=== PATIENT | female | born 1935 | race Two or more races ===

== ENCOUNTER 2017-09-10 21:56 | Observation (INO) | payer MEDICARE ==
[2017-09-10] MEDS: SODIUM CHLORIDE 0.9% FLUSH 10 ML FLUSH IV FLUSH SCH (21:00)
[2017-09-10 21:20] VITALS: BP 148/67; PULSE 97; RESP 20; TEMP 97.1; O2SAT 95
[~2017-09-10 21:56] MED LIST: ACETAMINOPHEN 325 MG TAB PO PRN; ACETAMINOPHEN/HYDROcodone 325 MG/5 MG TAB PO PRN; AGGR20025 PO; ATOR20TA15 PO; BISACODYL 10 MG SUPP RECTAL PRN; DEXTROSE 50% IN WATER 50 ML VIAL(D50) IV PUSH PRN; GLIM4TAB PO; GLUCAGON 1 MG/ML VIAL OTHER PRN; LACTULOSE SYRUP 20 GM/30 ML CUP PO PRN; LOSA100T PO; MAGNESIUM HYDROXIDE SUSP 30 ML CUP PO PRN; METO1TAB42 PO; MORPHINE SULFATE 4 MG/ML INJ IV PUSH PRN; ONDANSETRON HCL 4 MG/2 ML VIAL IVP PRN; RESP: ALBUTEROL 2.5 MG/IPRATROPIUM 0.5 MG NEB (PRN) NEB; SENNOSIDES 8.6 MG TAB PO PRN; SITA1TAB2 PO; SODIUM CHLORIDE 0.9% FLUSH 10 ML FLUSH IV FLUSH PRN; VENTAER INH
[2017-09-10] MEDS: guaiFENesin E.R. 600 MG TAB PO SCH (22:25)
[2017-09-10] MEDS: ATORVASTATIN 20 MG TAB PO SCH (22:25)
[2017-09-10] MEDS: BUDESONIDE-FORMOTEROL 160/4.5 MCG INHALER INH SCH (22:25)
[2017-09-10] MEDS: INSULIN ASPART SUPPLEMENTAL SCALE SQ SCH (22:25)
[2017-09-10] MEDS: RESP: ALBUTEROL 2.5 MG/IPRATROPIUM 0.5 MG NEB (SCH) NEB (23:01)
[2017-09-11] VITALS (7 sets, daily range): BP systolic 146–172; BP diastolic 69–82; PULSE 78–104; RESP 12–18; TEMP 96.7–98.2; O2SAT 91–97
[2017-09-11] MEDS: methylPREDNISolone SOD SUCC 40 MG/1 ML VIAL IV PUSH SCH ×4 (00:06→18:22)
[2017-09-11] MEDS: RESP: ALBUTEROL 2.5 MG/IPRATROPIUM 0.5 MG NEB (SCH) NEB ×4 (07:41→20:13)
[2017-09-11] MEDS: INSULIN ASPART SUPPLEMENTAL SCALE SQ SCH ×4 (08:00→20:43)
[2017-09-11] MEDS ORDERED: DOCUSATE SODIUM 50 MG/SENNA 8.6 MG TAB PO SCH (09:00)
[2017-09-11 10:05] LABS: CHLORIDE 104 MEQ/L (98-107); POTASSIUM 4.5 MEQ/L (3.5-5.1); SODIUM (NA) 138 MEQ/L (136-145)
[2017-09-11 10:12] LABS: ANION GAP 10 MEQ/L (5-15); BICARBONATE 24.1 MEQ/L (21.0-32.0); BLOOD UREA NITROGEN 32 MG/DL (7-18)
[2017-09-11 10:15] LABS: AST (GOT) 20 U/L (15-37); GLOMERULAR FILTRATION RATE 53 ML/MIN (>89)
[2017-09-11 10:16] LABS: TOTAL BILIRUBIN ADULT 0.3 MG/DL (0.2-1.0)
[2017-09-11 10:17] LABS: ALT (GPT) 25 U/L (10-53)
[2017-09-11 10:18] LABS: ALKALINE PHOSPHATASE 83 U/L (45-117)
[2017-09-11 11:11] LABS: AUTOMATED NEUTROPHIL # 5.5 TH/MM3 (1.8-7.7); BASOPHIL % 0.2 % (0.0-2.0); HEMATOCRIT 44.8 % (35.0-46.0); LYMPHOCYTE # 0.7 TH/MM3 (1.0-4.8); MEAN CELL VOLUME 87.1 FL (80.0-100.0); MEAN CORPUSCULAR HEMOGLOBIN 27.7 PG (27.0-34.0); MEAN CORPUSCULAR HGB CONC 31.8 % (32.0-36.0); MONO % 5.4 % (0.0-8.0); NEUT % 83.4 % (16.0-70.0); PLATELET COUNT 159 TH/MM3 (150-450); RED BLOOD COUNT 5.15 MIL/MM3 (4.00-5.30); RED CELL DISTRIBUTION WIDTH 13.1 % (11.6-17.2); WHITE BLOOD COUNT 6.5 TH/MM3 (4.0-11.0)
[2017-09-11 11:13] LABS: HEMO FLAGS DIFF FINAL
[2017-09-11] MEDS: GLIMEPIRIDE 4 MG TAB PO SCH (11:30)
[2017-09-11] MEDS: BUDESONIDE-FORMOTEROL 160/4.5 MCG INHALER INH SCH ×2 (11:30→20:40)
[2017-09-11] MEDS: LOSARTAN 50 MG TAB PO SCH (11:30)
[2017-09-11] MEDS: METOPROLOL SUCCINATE 25 MG EXTENDED RELEASE TAB PO SCH (11:30)
[2017-09-11] MEDS: DIPYRIDAMOLE/ASPIRIN 200 MG/25 MG CAP PO SCH ×2 (11:30→20:39)
[2017-09-11] MEDS: guaiFENesin E.R. 600 MG TAB PO SCH ×2 (11:32→20:39)
[2017-09-11] MEDS: SODIUM CHLORIDE 0.9% FLUSH 10 ML FLUSH IV FLUSH SCH ×2 (11:33→20:36)
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
[2017-09-11] MEDS: HEPARIN SODIUM - SQ 10,000 UNITS/ML VIAL SQ SCH ×2 (15:58→20:39)
[2017-09-11] MEDS ORDERED: MORPHINE SULFATE 2 MG/ML INJ IV PUSH PRN (16:30)
[2017-09-11] MEDS: ATORVASTATIN 20 MG TAB PO SCH (20:39)
[2017-09-12] VITALS: BP 173/78; PULSE 96; RESP 18; TEMP 96.1; O2SAT 93
[2017-09-12] MEDS: methylPREDNISolone SOD SUCC 40 MG/1 ML VIAL IV PUSH SCH ×2 (00:21→06:00)
[2017-09-12] MEDS ORDERED: diphenhydrAMINE HCL 25 MG CAP PO ONE (00:45)
[2017-09-12] MEDS: HEPARIN SODIUM - SQ 10,000 UNITS/ML VIAL SQ SCH (06:00)
[2017-09-12] MEDS: RESP: ALBUTEROL 2.5 MG/IPRATROPIUM 0.5 MG NEB (SCH) NEB ×2 (07:34→11:22)
[2017-09-12 07:36] VITALS: O2SAT 93
[2017-09-12 08:00] VITALS: BP 190/84; PULSE 91; RESP 20; TEMP 97.4; O2SAT 92
[2017-09-12] MEDS: INSULIN ASPART SUPPLEMENTAL SCALE SQ SCH (08:00)
[2017-09-12] MEDS: LOSARTAN 50 MG TAB PO SCH (08:50)
[2017-09-12] MEDS: guaiFENesin E.R. 600 MG TAB PO SCH (08:50)
[2017-09-12] MEDS: METOPROLOL SUCCINATE 25 MG EXTENDED RELEASE TAB PO SCH (08:50)
[2017-09-12] MEDS: BUDESONIDE-FORMOTEROL 160/4.5 MCG INHALER INH SCH (08:50)
[2017-09-12] MEDS: SODIUM CHLORIDE 0.9% FLUSH 10 ML FLUSH IV FLUSH SCH (08:52)
[2017-09-12] MEDS: DIPYRIDAMOLE/ASPIRIN 200 MG/25 MG CAP PO SCH (08:52)
[2017-09-12] MEDS: GLIMEPIRIDE 4 MG TAB PO SCH (09:02)
[2017-09-12 09:50] VITALS: RESP 20
[2017-09-12] MEDS ORDERED: ALBU6.7H INH (10:04)
[2017-09-12] MEDS ORDERED: PRED10PA PO (10:04)
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
== END 2017-09-12 11:46 | disposition home or self-care (01) ==
LOC: PHEDDLT 21:56 → PH3A 21:57
PROVIDERS: ADMIT Hospitalist; ATTEND Hospitalist
DX: J98.01 Acute bronchospasm (principal); R06.02 Shortness of breath; I10 Essential (primary) hypertension; E11.9 Type 2 diabetes mellitus without complications; Z86.73 Personal history of transient ischemic attack (TIA), and cerebral infarction without residual deficits
CPT/HCPCS: 71010; 80053; 82948; 83880; 84484; 85025; 93005; 94620; 94640; 94664; 96372; 96374; 96376; G0378; J1644; J1815; J2920; J2930